=== PATIENT | male | born 1940 | race Caucasian/White ===

== ENCOUNTER → 2016-10-03 | Outpatient (CLI) | payer MEDICARE, OTHER ==
[2016-10-03 12:46] LABS: HEMATOCRIT 35.1 % (39.0-51.0); MEAN CELL VOLUME 112.4 FL (80.0-100.0); MEAN CORPUSCULAR HGB CONC 34.7 % (32.0-36.0); PLATELET COUNT 106 TH/MM3 (150-450); RED BLOOD COUNT 3.13 MIL/MM3 (4.50-5.90); RED CELL DISTRIBUTION WIDTH 14.4 % (11.6-17.2); WHITE BLOOD COUNT 3.9 TH/MM3 (4.0-11.0)
[2016-10-03 12:52] LABS: HEMO FLAGS AUTO DIFF
[2016-10-03 13:01] LABS: EOSINOPHILS 5 % (0-4); MYELOCYTES 1 % (0-0); NEUTROPHIL # MANUAL DIFF 2.9 TH/MM3 (1.8-7.7); OVALOCYTES 1+ (NORMAL); PLATELET ESTIMATE SMEAR LOW (NORMAL); PLATELET MORPHOLOGY NORMAL (NORMAL); POLYS (SEG NEUTROPHILS) 73 % (16-70); SCAN/DIFF FINAL DIFF MANUAL; WBC DIFF SAMPLE 100
== END ==
LOC: HLAB 11:58
DX: E85.8 Other amyloidosis (principal)
CPT/HCPCS: 36415; 85007; 85027

== ENCOUNTER → 2016-10-15 | Outpatient (CLI) | payer MEDICARE, BC ==
[2016-10-15 12:16] LABS: AUTOMATED NEUTROPHIL # 5.1 TH/MM3 (1.8-7.7); BASOPHIL % 0.4 % (0.0-2.0); EOSINOPHIL # 0.1 TH/MM3 (0-0.4); EOSINOPHIL % 1.3 % (0.0-4.0); HEMATOCRIT 36.1 % (39.0-51.0); LYMPH % 6.1 % (9.0-44.0); LYMPHOCYTE # 0.4 TH/MM3 (1.0-4.8); MEAN CELL VOLUME 111.6 FL (80.0-100.0); MEAN CORPUSCULAR HEMOGLOBIN 37.8 PG (27.0-34.0); MEAN CORPUSCULAR HGB CONC 33.9 % (32.0-36.0); NEUT % 82.2 % (16.0-70.0); PLATELET COUNT 124 TH/MM3 (150-450); RED BLOOD COUNT 3.24 MIL/MM3 (4.50-5.90); RED CELL DISTRIBUTION WIDTH 14.8 % (11.6-17.2); WHITE BLOOD COUNT 6.3 TH/MM3 (4.0-11.0)
[2016-10-15 12:21] LABS: HEMO FLAGS AUTO DIFF
[2016-10-15 13:05] LABS: OVALOCYTES 1+ (NORMAL); PLATELET ESTIMATE SMEAR LOW (NORMAL); PLATELET MORPHOLOGY NORMAL (NORMAL); SCAN/DIFF AUTO DIFF CONFIRMED; TOXIC VACUOLATION PRESENT (NONE SEEN)
== END ==
LOC: CLAB 11:57
DX: E85.8 Other amyloidosis (principal)
CPT/HCPCS: 36415; 85025

== ENCOUNTER → 2016-10-29 | Outpatient (CLI) | payer MEDICARE, BC ==
[2016-10-29 13:53] LABS: AUTOMATED NEUTROPHIL # 2.6 TH/MM3 (1.8-7.7); BASOPHIL % 1.1 % (0.0-2.0); EOSINOPHIL # 0.1 TH/MM3 (0-0.4); EOSINOPHIL % 1.4 % (0.0-4.0); HEMATOCRIT 35.8 % (39.0-51.0); LYMPH % 8.7 % (9.0-44.0); LYMPHOCYTE # 0.3 TH/MM3 (1.0-4.8); MEAN CELL VOLUME 112.9 FL (80.0-100.0); MEAN CORPUSCULAR HEMOGLOBIN 37.5 PG (27.0-34.0); MEAN CORPUSCULAR HGB CONC 33.2 % (32.0-36.0); MONO % 19.5 % (0.0-8.0); NEUT % 69.3 % (16.0-70.0); PLATELET COUNT 86 TH/MM3 (150-450); RED BLOOD COUNT 3.17 MIL/MM3 (4.50-5.90); RED CELL DISTRIBUTION WIDTH 15.4 % (11.6-17.2); WHITE BLOOD COUNT 3.7 TH/MM3 (4.0-11.0)
[2016-10-29 13:58] LABS: HEMO FLAGS AUTO DIFF
[2016-10-29 14:26] LABS: PLATELET ESTIMATE SMEAR LOW (NORMAL); PLATELET MORPHOLOGY NORMAL (NORMAL); SCAN/DIFF AUTO DIFF CONFIRMED
== END ==
LOC: CLAB 13:27
DX: E85.8 Other amyloidosis (principal)
CPT/HCPCS: 36415; 85025

== ENCOUNTER → 2017-10-15 | Outpatient (CLI) | payer MEDICARE, BC ==
[2017-10-15 14:42] LABS: CALCIUM 10.6 MG/DL (8.5-10.1); CREATININE 2.81 MG/DL (0.60-1.30)
[2017-10-15 14:43] LABS: PHOSPHORUS 2.5 MG/DL (2.5-4.9)
== END ==
LOC: CLAB 13:48
DX: E83.39 Other disorders of phosphorus metabolism (principal); N18.3 Chronic kidney disease, stage 3 (moderate); E21.2 Other hyperparathyroidism
CPT/HCPCS: 36415; 82310; 82565; 84100